=== PATIENT | male | born 1975 | race Caucasian/White ===

== ENCOUNTER 2016-11-30 20:30 | Emergency (ER) | payer OTHER ==
[~2016-11-30] VITALS: Ht 165.1 cm; Wt 89.5 kg
[~2016-11-30 20:30] MED LIST: DOXY100T20 PO
[2016-11-30 20:32] VITALS: Ht 165.1 cm; Wt 89.5 kg
[2016-11-30] MEDS ORDERED: ACET/BUTAL/CAFF TAB PO ONE (22:30)
--- NOTE | 2016-11-30 22:37 | ERD ---
ER Documentation Chief Complaint Date/Time DATE: 11/30/16 TIME: 22:28 Chief Complaint headache x 2 days HPI 41-year-old male presents to emergency department for complaints of headache for 2 days, describes the headache as throbbing pain, 6/10 scale, took ibuprofen for pain with mild relief. Patient denies any nausea vomiting. Patient denies any fever or chills. Patient denies any neck pain. Patient denies any blurry vision. Patient denies any numbness or tingling. Patient denies any changes in balance or memory. ROS All systems reviewed and are negative except as per history of present illness. Medications Home Meds Active Scripts Acetamin/Butalbital/Caffeine* (Fioricet*) [id number] Tab, 1 TAB PO Q6H Y for PAIN, #30 TAB Prov:AISSATOU JURADO NP 12/01/16 Doxycycline Hyclate* (Doxycycline Hyclate*) 100 Mg Tablet., 100 MG PO BID for 10 Days, TAB Prov:ANY DO PA-C 04/03/16 Allergies Allergies: Coded Allergies: No Known Allergy (Unverified , 11/30/16) PMhx/Soc Medical and Surgical Hx: pt denies Medical Hx, pt denies Surgical Hx Hx Alcohol Use: No Hx Substance Use: No Hx Tobacco Use: No Smoking Status: Never smoker FmHx Family History: No coronary disease, No diabetes, No other Physical Exam Vitals Vital Signs Date Time Temp Pulse Resp B/P Pulse Ox O2 Delivery O2 Flow Rate FiO2 11/30/16 20:32 97.8 99 20 177/90 98 Physical Exam GENERAL: The patient is well developed and appropriate for usual state of health, in no apparent distress. CHEST: Clear to auscultation bilaterally. There are no rales, wheezes or rhonchi. HEART: Regular rate and rhythm. No murmurs, clicks, rubs or gallops. No S3 or S4. ABDOMEN: Soft, nontender and nondistended. Good bowel sounds. No rebound or guarding. No gross peritonitis. No gross organomegaly or masses. No Mahoney sign or McBurney point tenderness. BACK: No midline or flank tenderness. EXTREMITIES: Equal pulses bilaterally. There is no peripheral clubbing, cyanosis or edema. No focal swelling or erythema. Full range of motion. Grossly neurovascularly intact. NEURO: Alert and oriented. Cranial nerves 2-12 intact. Motor strength in all 4 extremities with 5/5 strength. Sensation grossly intact. Normal speech and gait. Negative Romberg sign. Negative pronator drift. SKIN: There is no apparent rash or petechia. The skin is warm and dry. HEMATOLOGIC AND LYMPHATIC: There is no evidence of excessive bruising or lymphedema. No gross cervical, axillary, or inguinal lymphadenopathy. Results 24 hrs Current Medications Medications (Trade) Dose Ordered Sig/Hayder Route PRN Reason Start Time Stop Time Status Last Admin Dose Admin Acetaminophen/ Butalbital/ Caffeine (Fioricet) 1 tab ONCE ONCE PO 11/30/16 22:30 11/30/16 22:31 DC 11/30/16 22:53 Patient was given medication for pain here in emergency department, after treatment, patient verbalized feeling much better. Patient's pain is improved. PROCEDURE: CT Brain without contrast. CLINICAL INDICATION: HEADACHE TECHNIQUE: A multiplanar CT of the brain was performed on a CT scanner utilizing axial imaging from the skull base through the vertex without IV contrast. The CTDIvol is 43.95 mGy and the DLP is 720.23 mGycm. One or more of the following dose reduction techniques were utilized: Automated exposure control, adjustment of the mA and/or kV according to patient size, use of iterative reconstruction technique. COMPARISON: None FINDINGS: No evidence of intracranial hemorrhage or abnormal extra-axial fluid collection. The brain parenchyma is normal attenuation morphology with preservation of luna white differentiation and age appropriate size of the ventricles and subarachnoid spaces. Opacification of the right posterior ethmoid air cells. The basal cisterns, posterior fossa contents, brainstem, craniocervical junction , orbits, pituitary axis, remaining paranasal sinuses, mastoid air cells, and calvarium are unremarkable. IMPRESSION: 1. No intracranial hemorrhage or acute intracranial abnormality. RPTAT:AAJJ Physician Lisette Date Time Electronically viewed and signed by Physician Lisette on 11/30/2016 23:53 TIFF/ CC: AISSATOU JURADO NP Procedures/MDM Medical Decision Making: Patient's headache most active consistent with tension headache, most likely can be also migraine. There is low suspicion for neurological emergencies at this time since patients neurologic exam is normal. Patient did not have any altered level consciousness, vomiting, changes in balance or memory after incident. Patients CT scan of the head does not show any neurological emergencies at this time. Patient's blood pressure was elevated (>120/80) but appears stable without evidence of hypertension emergency or urgency. The patient was counseled about the risks of hypertension and urged to pursue outpatient monitoring and therapy within a week with their primary care physician. Blood pressure improved after medication for pain was given. Elevated blood pressure may be from the pain, elevated blood pressure can be causing also the pain, for evaluation by primary care physician is appropriate at this time, upon reevaluation of patient's blood pressure was still elevated, but patient is completely asymptomatic, in his Alexandra decreased to 2/10 scale. No neurologic symptoms. No symptoms of any stroke. No symptoms of a cardiopulmonary emergencies at this time.. Departure Diagnosis: Primary Impression: Headache Headache type: unspecified Headache chronicity pattern: acute headache Intractability: not intractable Qualified Code: R51 - Acute nonintractable headache, unspecified headache type Additional Impression: Elevated blood pressure reading Condition: Stable Patient Instructions: Self-Care for Headaches AISSATOU JURADO NP November 30, 2016 22:37
--- NOTE | 2016-11-30 23:53 | RADRPT ---
PROCEDURE: CT Brain without contrast. CLINICAL INDICATION: HEADACHE TECHNIQUE: A multiplanar CT of the brain was performed on a CT scanner utilizing axial imaging fro m the skull base through the vertex without IV contrast. The CTDIvol is 43.95 mGy and the DLP is 72 0.23 mGycm. One or more of the following dose reduction techniques were utilized: Automated exposu re control, adjustment of the mA and/or kV according to patient size, use of iterative reconstructio n technique. COMPARISON: None FINDINGS: No evidence of intracranial hemorrhage or abnormal extra-axial fluid collection. The brain parenchyma is normal attenuation morphology with preservation of luna white differentiatio n and age appropriate size of the ventricles and subarachnoid spaces. Opacification of the right posterior ethmoid air cells. The basal cisterns, posterior fossa contents, brainstem, craniocervical junction, orbits, pituitary axis, remaining paranasal sinuses, mastoid air cells, and calvarium are unremarkable. IMPRESSION: 1. No intracranial hemorrhage or acute intracranial abnormality. RPTAT:AAJJ Physician Lisette Date Time Electronically viewed and signed by Physician Lisette on 11/30/2016 23:53 TIFF/
[2016-12-01] MEDS ORDERED: FIORICET PO (00:20)
[2016-12-01 00:41] VITALS: BP 176/110
== END 2016-12-01 00:41 | disposition home or self-care (01) ==
LOC: FTE 20:30
DX: R51 Headache (principal); I10 Essential (primary) hypertension
CPT/HCPCS: 70450; Z7610

== ENCOUNTER 2017-09-08 06:06 | Emergency (ER) | END 2017-09-08 09:38 | disposition home or self-care (01) ==